=== PATIENT | male | born 1955 | race Caucasian/White ===

== ENCOUNTER 2018-03-06 23:48 | Inpatient (IN) | payer MEDICAID ==
[~2018-03-06] VITALS: Ht 172.7 cm; Wt 65.2 kg
[2018-03-06] MEDS ORDERED: methylPREDNISolone SOD SUCC 125 MG/2 ML ONE (23:53)
[2018-03-07] MEDS ORDERED: AZITHROMYCIN 500 MG in SODIUM CHLORIDE 0.9% 250 ML IVPB ONE
[2018-03-07] MEDS ORDERED: ALBUTEROL 0.5%, 20ML NPPB SCH
[2018-03-07] MEDS ORDERED: methylPREDNISolone SOD SUCC 125 MG/2 ML IVP ONE
[2018-03-07 00:41] LABS: BASOPHILS % (AUTO) 1 % (0-1); EOSINOPHILS # (AUTO) 1.05 x10^3/uL (0-0.4); EOSINOPHILS % (AUTO) 11 % (1-7); LYMPHOCYTES # (AUTO) 2.31 x10^3/uL (1-3.4); LYMPHOCYTES % (AUTO) 23 % (22-44); MD NO; MEAN CORPUSCULAR HEMOGLOBIN 30.7 pg (27.5-34.5); MEAN CORPUSCULAR HGB CONC 33.8 g/dL (33.2-36.2); MEAN CORPUSCULAR VOLUME 90.7 fL (81-97); MEAN PLATELET VOLUME 7.8 fL (7.4-10.4); MONOCYTES # (AUTO) 0.73 x10^3/uL (0.2-0.8); MONOCYTES % (AUTO) 7 % (2-9); NEUTROPHILS # (AUTO) 5.77 x10^3/uL (1.8-6.8); NEUTROPHILS % (AUTO) 58 % (42-75); PLATELET COUNT 237 x10^3/uL (130-400); RED BLOOD COUNT 5.17 x10^6/uL (4.38-5.82); RED CELL DISTRIBUTION WIDTH 13.5 % (9.4-14.8)
[2018-03-07 00:50] LABS: ALBUMIN 3.6 g/dL (3.4-5.0); ANION GAP 8 mmol/L (5-15); CALCIUM 8.7 mg/dL (8.5-10.1); CHLORIDE 109 mmol/L (98-107); CREATININE 0.86 mg/dL (0.7-1.3)
[2018-03-07 00:54] LABS: TROPONIN I < 0.015 ng/mL (0.000-0.045)
[2018-03-07] MEDS ORDERED: MAGNESIUM SULFATE PMX 1GM/100ML IV ONE (01:30)
[2018-03-07] MEDS ORDERED: MAGNESIUM SULFATE 1 GM in SODIUM CHLORIDE 0.9% 50 ML IV ONE (01:30)
[2018-03-07] MEDS ORDERED: ONDANSETRON 2MG/ML, 2ML IVPush PRN (02:00)
[2018-03-07] MEDS ORDERED: hydrALAzine 20 MG/ML, 1ML IVPush PRN (02:00)
[2018-03-07] MEDS ORDERED: ACETAMINOPHEN 325 MG TABLET PO PRN (02:00)
[2018-03-07] MEDS ORDERED: methylPREDNISolone SOD SUCC 125 MG/2 ML IVPush SCH (02:00)
[2018-03-07] MEDS ORDERED: GUAIFENESIN/COD200MG-20MG/10ML LIQUID PO PRN (02:00)
[2018-03-07] MEDS ORDERED: DOCUSATE 100 MG CAPSULE PO PRN (02:00)
[2018-03-07] MEDS ORDERED: morphine SULFATE 10 MG/ML, 1ML IVPush PRN (02:00)
[2018-03-07] MEDS: ALBUTEROL/IPRATROPIUM 2.5MG/0.5MG, 3 ML NPPB SCH ×6 (03:18→22:41)
[2018-03-07 04:00] VITALS: BP 115/71
[2018-03-07 04:16] VITALS: BP 128/84
[2018-03-07] MEDS ORDERED: albuterol INH (04:34)
[2018-03-07] MEDS ORDERED: ASPI-496 PO (04:34)
[2018-03-07] MEDS: ASPIRIN 81 MG TABLET EC PO SCH (05:20)
[2018-03-07] MEDS: ENOXAPARIN 40 MG/0.4 ML SQ SCH (05:21)
[2018-03-07] MEDS: methylPREDNISolone SOD SUCC 125 MG/2 ML IVPush SCH ×3 (05:21→17:36)
[2018-03-07] MEDS: PANTOPRAZOLE 40 MG IV IVPush SCH (09:28)
[2018-03-07 19:50] VITALS: BP 117/71
[2018-03-07] MEDS ORDERED: AZITHROMYCIN 500 MG in SODIUM CHLORIDE 0.9% 250 ML IV SCH (20:00)
[2018-03-08] MEDS: methylPREDNISolone SOD SUCC 125 MG/2 ML IVPush SCH ×2 (00:11→05:47)
[2018-03-08 01:23] VITALS: BP 110/61
[2018-03-08] MEDS: ALBUTEROL/IPRATROPIUM 2.5MG/0.5MG, 3 ML NPPB SCH ×2 (02:51→08:01)
[2018-03-08 05:18] LABS: BASOPHILS # (AUTO) 0.01 x10^3/uL (0-0.1); BASOPHILS % (AUTO) 0 % (0-1); EOSINOPHILS % (AUTO) 0 % (1-7); LYMPHOCYTES # (AUTO) 0.81 x10^3/uL (1-3.4); LYMPHOCYTES % (AUTO) 7 % (22-44); MD NO; MEAN CORPUSCULAR HEMOGLOBIN 30.8 pg (27.5-34.5); MEAN CORPUSCULAR HGB CONC 33.5 g/dL (33.2-36.2); MEAN CORPUSCULAR VOLUME 91.7 fL (81-97); MONOCYTES # (AUTO) 0.21 x10^3/uL (0.2-0.8); MONOCYTES % (AUTO) 2 % (2-9); NEUTROPHILS # (AUTO) 10.78 x10^3/uL (1.8-6.8); NEUTROPHILS % (AUTO) 91 % (42-75); PLATELET COUNT 209 x10^3/uL (130-400); RED BLOOD COUNT 4.48 x10^6/uL (4.38-5.82); RED CELL DISTRIBUTION WIDTH 14.1 % (9.4-14.8)
[2018-03-08 05:30] LABS: CHLORIDE 112 mmol/L (98-107)
[2018-03-08 05:35] LABS: ANION GAP 10 mmol/L (5-15); CALCIUM 8.7 mg/dL (8.5-10.1); CREATININE 0.86 mg/dL (0.7-1.3)
[2018-03-08] MEDS: ASPIRIN 81 MG TABLET EC PO SCH (05:47)
[2018-03-08] MEDS: ENOXAPARIN 40 MG/0.4 ML SQ SCH (05:47)
[2018-03-08] MEDS: PANTOPRAZOLE 40 MG IV IVPush SCH (05:57)
[2018-03-08 07:43] VITALS: BP 104/47
[2018-03-08] MEDS ORDERED: ALBUTEROL/IPRATROPIUM 2.5MG/0.5MG, 3 ML NPPB SCH ×2 (11:00→21:00)
[2018-03-08] MEDS ORDERED: AZIT250T PO (11:14)
[2018-03-08] MEDS ORDERED: METH4TAB2 PO (11:14)
[2018-03-08 11:57] VITALS: BP 106/52
[2018-03-08] MEDS ORDERED: methylPREDNISolone SOD SUCC 40 MG/ML IVPush SCH (14:00)
== END 2018-03-08 14:07 | disposition home or self-care (01) | DRG 189 ==
LOC: ED 23:59 → EDIP 03-07 01:19 → CCU 03-07 01:49 → 4NOR 03-07 18:21
PROVIDERS: ADMIT Internal Medicine; ATTEND Internal Medicine
PROC: 5A09357 Assistance with Respiratory Ventilation, Less than 24 Consecutive Hours, Continuous Positive Airway Pressure (ICD-10-PCS; principal; 2018-03-07)
DX: J96.01 Acute respiratory failure with hypoxia (principal); J44.0 Chronic obstructive pulmonary disease with (acute) lower respiratory infection; E87.2 Acidosis; J44.1 Chronic obstructive pulmonary disease with (acute) exacerbation; J96.02 Acute respiratory failure with hypercapnia; J20.9 Acute bronchitis, unspecified; Z80.1 Family history of malignant neoplasm of trachea, bronchus and lung; Z87.891 Personal history of nicotine dependence
CPT/HCPCS: 36415; 36600; 71045; 80048; 82040; 82803; 83735; 84100; 84484; 85025; 87070; 87081; 87205; 93005; 93306; 94640; 94644; 94660; 96374; 96375; G0378; J0456; J1650; J3475; J7620; C9113; J2930; J7050

== ENCOUNTER 2020-04-21 01:01 | Inpatient (IN) | payer MEDICAID ==
[~2020-04-21] VITALS: Ht 167.6 cm; Wt 75.8 kg
[~2020-04-21 01:01] MED LIST: ASPI-496 PO; AZIT250T PO; METH4TAB2 PO; albuterol INH
--- NOTE | 2020-04-21 01:04 | NUR ---
EKG DONE ON ARRIVAL.
--- NOTE | 2020-04-21 01:25 | NUR ---
PT. WAS PLACED ON OPTIFLOW IMMEDIATLY UPON ARRIVAL. PT. TOLERATING WELL. 60%, 45L. PT. PROVIDED WITH MOUTH SWABS PER REQUEST.
[2020-04-21] MEDS ORDERED: ALBUTEROL/IPRATROPIUM 2.5MG/0.5MG, 3 ML ONE (01:30)
[2020-04-21] MEDS ORDERED: ALBUTEROL 0.5%, 20ML NPPB SCH (01:30)
[2020-04-21] MEDS ORDERED: SODIUM CHLORIDE FLUSH 10ML SYR IVF ONE (01:30)
--- NOTE | 2020-04-21 01:40 | NUR ---
RT COMPLETED CONTINUOUS NEB SET UP TO HIGH FLOW OXYGEN. PT. TOLERATING BEING TITRATED DOWN ON O2 % WELL. NOW AT 50% AND 45LITERS. ALL MONITORS WERE PLACED ON ARRIVAL. VSS.
[2020-04-21 01:47] LABS: ALANINE AMINOTRANSFERASE 35 U/L (12-78); ALBUMIN 3.9 g/dL (3.4-5.0); ANION GAP 8 mmol/L (5-15); BASOPHILS % (AUTO) 0 % (0-1); CALCIUM 8.7 mg/dL (8.5-10.1); CHLORIDE 109 mmol/L (98-107); CREATININE 0.84 mg/dL (0.7-1.3); EOSINOPHILS % (AUTO) 0 % (1-7); LYMPHOCYTES % (AUTO) 5 % (22-44); MEAN CORPUSCULAR HEMOGLOBIN 31.6 pg (27.5-34.5); MEAN CORPUSCULAR HGB CONC 34.7 g/dL (33.2-36.2); MEAN PLATELET VOLUME 7.8 fL (7.4-10.4); MONOCYTES % (AUTO) 1 % (2-9); NEUTROPHILS % (AUTO) 94 % (42-75); PLATELET COUNT 229 x10^3/uL (130-400); RED BLOOD COUNT 5.21 x10^6/uL (4.38-5.82); RED CELL DISTRIBUTION WIDTH 13.3 % (9.4-14.8)
[2020-04-21 01:51] LABS: ALKALINE PHOSPHATASE 114 U/L (45-117); BILIRUBIN,TOTAL 0.8 mg/dL (0.2-1.0); TOTAL PROTEIN 7.3 g/dL (6.4-8.2)
[2020-04-21 01:52] LABS: MD NO; TROPONIN I 0.456 ng/mL (0.000-0.045)
--- NOTE | 2020-04-21 02:14 | NUR ---
SHEET METAL INSULATOR PT. RECEIVED 125MG SOLUMEDROL, 1 MG MAGNESIUM, AND MULTIPLE BREATHING TX. PT. C/O PAIN TO LOWER BACK R/T POSITIONING WHILE RIDING HERE. PT. REQUESTING IBUPROFEN; WILL DISCUSS WITH MD. PT. TOLERATING OPTIFLOW WELL.
[2020-04-21] MEDS ORDERED: ACETAMINOPHEN 500 MG TABLET PO ONE (02:30)
[2020-04-21] MEDS ORDERED: ASPIRIN 325 MG TABLET PO ONE (02:30)
--- NOTE | 2020-04-21 02:32 | NUR ---
NEW ORDERS RECEIVED FROM DR. JOYA FOR PT. PAIN. BS REPORT GIVEN TO ALFREDO CALIX TO ASSUME CARE OF PT. ENDORSED MED NEEDS TO FIFI.
[2020-04-21] MEDS ORDERED: ACETAMINOPHEN 500 MG TABLET ONE (03:05)
[2020-04-21] MEDS ORDERED: ASPIRIN 325 MG TABLET ONE (03:05)
[2020-04-21] MEDS ORDERED: MELATONIN 5 MG TABLET PO PRN (03:30)
[2020-04-21] MEDS ORDERED: morphine SULFATE 10 MG/ML, 1ML IVPush PRN (03:30)
[2020-04-21] MEDS ORDERED: ONDANSETRON 2MG/ML, 2ML IVPush PRN (03:30)
[2020-04-21] MEDS ORDERED: ACETAMINOPHEN 325 MG TABLET PO PRN (03:30)
[2020-04-21] MEDS: ENOXAPARIN 40 MG/0.4 ML SQ SCH (03:30)
[2020-04-21] MEDS ORDERED: hydrALAzine 20 MG/ML, 1ML IVPush PRN (03:30)
[2020-04-21 03:52] VITALS: BP 124/80
[2020-04-21] MEDS: methylPREDNISolone SOD SUCC 125 MG/2 ML IVPush SCH ×4 (04:28→20:21)
[2020-04-21] MEDS: ASPIRIN 325 MG TABLET EC PO SCH (04:31)
[2020-04-21 06:34] VITALS: BP 110/67
[2020-04-21] MEDS: ALBUTEROL/IPRATROPIUM 2.5MG/0.5MG, 3 ML NPPB SCH ×3 (07:00→14:27)
[2020-04-21] MEDS ORDERED: ALBUTEROL/IPRATROPIUM 2.5MG/0.5MG, 3 ML NPPB SCH (07:00)
[2020-04-21] MEDS: ALBUTEROL HFA 90 MCG/SPRAY INH PRN ×3 (10:39→20:20)
[2020-04-21] MEDS: FLUTICASONE/VILANTEROL 200-25MCG/INH INH SCH (12:09)
[2020-04-21] MEDS: GUAIFENESIN 200 MG TABLET PO SCH ×3 (12:09→20:21)
[2020-04-21 12:37] LABS: TROPONIN I 0.317 ng/mL (0.000-0.045)
[2020-04-21 13:40] VITALS: BP 102/60
[2020-04-21 20:49] VITALS: BP 105/50
[2020-04-21] MEDS: ALBUTEROL-IPRATROPIUM MDI INH INH SCH (21:22)
[2020-04-22 01:27] VITALS: BP 100/53
[2020-04-22] MEDS: methylPREDNISolone SOD SUCC 125 MG/2 ML IVPush SCH ×4 (03:31→21:33)
[2020-04-22] MEDS: ALBUTEROL-IPRATROPIUM MDI INH INH SCH ×4 (03:31→23:05)
[2020-04-22] MEDS: ENOXAPARIN 40 MG/0.4 ML SQ SCH (03:31)
[2020-04-22 05:32] LABS: BASOPHILS % (AUTO) 0 % (0-1); EOSINOPHILS % (AUTO) 0 % (1-7); LYMPHOCYTES % (AUTO) 7 % (22-44); MEAN CORPUSCULAR HEMOGLOBIN 30.9 pg (27.5-34.5); MEAN CORPUSCULAR HGB CONC 33.7 g/dL (33.2-36.2); MEAN PLATELET VOLUME 8.2 fL (7.4-10.4); MONOCYTES % (AUTO) 3 % (2-9); NEUTROPHILS % (AUTO) 90 % (42-75); PLATELET COUNT 203 x10^3/uL (130-400); RED BLOOD COUNT 4.52 x10^6/uL (4.38-5.82); RED CELL DISTRIBUTION WIDTH 13.5 % (9.4-14.8)
[2020-04-22 05:39] LABS: MD NO
[2020-04-22] MEDS: GUAIFENESIN 200 MG TABLET PO SCH ×4 (05:50→20:20)
[2020-04-22] MEDS: ASPIRIN 325 MG TABLET EC PO SCH (05:50)
[2020-04-22 05:54] LABS: CHLORIDE 110 mmol/L (98-107)
[2020-04-22 06:14] LABS: ANION GAP 3 mmol/L (5-15); CALCIUM 9.1 mg/dL (8.5-10.1); CHOLESTEROL, TOTAL 184 mg/dL (140-239); CREATININE 0.85 mg/dL (0.7-1.3); HDL CHOL % 33 % (26-37); HDL CHOLESTEROL (DIRECT) 61 mg/dL (40-60); LDL CHOLESTEROL,CALCULATED 110 mg/dL (54-169); LDL/HDL RATIO 1.8 (0.5-3.0); TRIGLYCERIDES 66 mg/dL (50-200); VLDL CHOLESTEROL 13 mg/dL (0-25)
[2020-04-22 06:31] VITALS: BP 107/58
[2020-04-22] MEDS: FLUTICASONE/VILANTEROL 200-25MCG/INH INH SCH (09:10)
[2020-04-22 13:17] VITALS: BP 124/64
[2020-04-22 20:00] VITALS: BP 109/66
[2020-04-23 01:10] VITALS: BP 125/63
[2020-04-23] MEDS: ENOXAPARIN 40 MG/0.4 ML SQ SCH (03:30)
[2020-04-23] MEDS: methylPREDNISolone SOD SUCC 125 MG/2 ML IVPush SCH ×3 (03:32→15:04)
[2020-04-23] MEDS: ALBUTEROL-IPRATROPIUM MDI INH INH SCH ×3 (03:32→15:04)
[2020-04-23] MEDS: ASPIRIN 325 MG TABLET EC PO SCH (05:35)
[2020-04-23] MEDS: GUAIFENESIN 200 MG TABLET PO SCH ×3 (05:35→15:03)
[2020-04-23] MEDS: FLUTICASONE/VILANTEROL 200-25MCG/INH INH SCH (08:29)
[2020-04-23 08:40] VITALS: BP 123/66
[2020-04-23] MEDS ORDERED: PRED20TA PO (10:28)
[2020-04-23] MEDS ORDERED: NICO-587 TD (10:28)
[2020-04-23] MEDS ORDERED: FLUT1BLS INH (10:28)
[2020-04-23 13:00] VITALS: BP 131/68
== END 2020-04-23 17:37 | disposition home or self-care (01) | DRG 140 ==
LOC: ED 03:59 → EDIP 04:00 → 4WST 04:04 → 3N 04-22 18:35
PROVIDERS: ADMIT Family Medicine; ATTEND Family Medicine
PROC: 5A09357 Assistance with Respiratory Ventilation, Less than 24 Consecutive Hours, Continuous Positive Airway Pressure (ICD-10-PCS; principal; 2020-04-21)
DX: J44.1 Chronic obstructive pulmonary disease with (acute) exacerbation (principal); R91.1 Solitary pulmonary nodule; J96.01 Acute respiratory failure with hypoxia; I21.A1 Myocardial infarction type 2; Z20.822 Contact with and (suspected) exposure to COVID-19; I10 Essential (primary) hypertension; F17.210 Nicotine dependence, cigarettes, uncomplicated; Z80.1 Family history of malignant neoplasm of trachea, bronchus and lung; Z79.899 Other long term (current) drug therapy
CPT/HCPCS: 36415; 71045; 80048; 80053; 80061; 83880; 84484; 85025; 87040; 93005; 93306; 94640; 99291; G0378; J1650; J2930; U0003